=== PATIENT | female | born 1985 ===

== ENCOUNTER 2017-08-27 18:32 | Emergency (ER) | payer OTHER ==
[2017-08-27] MEDS ORDERED: Sodium Chloride 0.9% 1,000 ML IV ONE (18:59)
[2017-08-27] MEDS ORDERED: Iohexol 240 (50 ml) PO ONE (19:01)
--- NOTE | 2017-08-27 19:01 | C.PDOC ---
History Of Present Illness 32 year old female presents to the ED for evaluation of lower abdominal pain which began a few days ago. Patient also reports experiencing some dysuria and hematuria. Patient was recently seen in [facility] and was sent for an abdominal CT. Patient states her LMP was 07/31; she denies being . Patient denies fever, chills. Chief Complaint (Nursing): Abdominal Pain History Per: Patient History/Exam Limitations: no limitations Onset/Duration Of Symptoms: Days Current Symptoms Are (Timing): Still Present Location Of Pain/Discomfort: Other (lower abdomen ) Associated Symptoms: Urinary Symptoms (dysuria, hematuria ). denies: Fever, Chills Additional History Per: Patient Abnormal Vaginal Bleeding: No Last Menstral Period: 07/31/2017 Past Medical History Reviewed: Historical Data, Nursing Documentation, Vital Signs Vital Signs: Last Vital Signs Temp 98.3 F 08/27/17 18:41 Pulse 77 08/27/17 18:41 Resp 16 08/27/17 18:41 BP 117/80 08/27/17 18:41 Pulse Ox 99 08/27/17 19:16 - Medical History PMH: No Chronic Diseases Surgical History: No Surg Hx Family History: States: Unknown Family Hx - Social History Hx Alcohol Use: No Hx Substance Use: No - Immunization History Hx Tetanus Toxoid Vaccination: No Hx Influenza Vaccination: No Hx Pneumococcal Vaccination: No Review Of Systems Constitutional: Negative for: Fever, Chills Gastrointestinal: Positive for: Abdominal Pain (lower ) Genitourinary: Positive for: Dysuria, Hematuria Physical Exam - Physical Exam Appears: Non-toxic, No Acute Distress Skin: Normal Color, Warm, Dry Head: Atraumatic, Normacephalic Eye(s): bilateral: Normal Inspection Oral Mucosa: Moist Neck: Supple Chest: Symmetrical, No Deformity, No Tenderness Cardiovascular: Rhythm Regular, No Murmur Respiratory: Normal Breath Sounds, No Rales, No Rhonchi, No Wheezing Gastrointestinal/Abdominal: Soft, Tenderness (right lower quadrant ), No Guarding, No Rebound Extremity: Normal ROM, Capillary Refill (less than 2 seconds ) Neurological/Psych: Oriented x3, Normal Speech, Normal Cognition ED Course And Treatment - Laboratory Results Result Diagrams: 08/27/17 19:37 08/27/17 19:37 O2 Sat by Pulse Oximetry: 99 (on RA) Pulse Ox Interpretation: Normal Progress Note: Bloodwork, urinalysis, CT A/P ordered and reviewed. IV Fluids given. Disposition Counseled Patient/Family Regarding: Diagnosis - Disposition Referrals: [facility] [Outside] Disposition: HOME/ ROUTINE Disposition Time: 22:12 Condition: STABLE Prescriptions: Nitrofurantoin Macrocrystals [Macrobid] 1 cap PO BID #14 cap Instructions: Urinary Tract Infections in Adults Forms: [facility] (Yoruba), Gen Discharge Inst Panamanian Print Language: PANAMANIAN - POA Present On Arrival: None - Clinical Impression Clinical Impression: UTI (urinary tract infection) - Scribe Statement The provider has reviewed the documentation as recorded by the Scribe (Savana Fernandes) Provider Attestation: All medical record entries made by the Scribe were at my direction and personally dictated by me. I have reviewed the chart and agree that the record accurately reflects my personal performance of the history, physical exam, medical decision making, and the department course for this patient. I have also personally directed, reviewed, and agree with the discharge instructions and disposition.
[2017-08-27 19:40] LABS: BASO # 0.1 K/uL (0.0-0.2); EOS # 0.2 K/uL (0.0-0.7); EOS % 1.8 % (0.0-4.0); HEMOGLOBIN 12.7 g/dL (11.0-16.0); LYMPH % 22.7 % (20.0-40.0); MEAN CELL VOLUME 89.6 fL (81.0-99.0); MEAN CORPUSCULAR HEMOGLOBIN 29.5 pg (27.0-31.0); MEAN CORPUSCULAR HGB CONC 32.9 g/dL (33.0-37.0); MEAN PLATELET VOLUME 8.6 fL (7.2-11.7); MONO # 0.7 K/uL (0.0-0.8); NEUT # 5.9 K/uL (1.8-7.0); NEUT % 66.5 % (50.0-75.0); RBC 4.3 Mil/uL (3.80-5.20); RED CELL DISTRIBUTION WIDTH 14.8 % (11.5-14.5); WHITE BLOOD COUNT 8.9 K/uL (4.8-10.8)
[2017-08-27] MEDS ORDERED: Iohexol 240 (50 ml) ONE (19:44)
[2017-08-27] MEDS ORDERED: Sodium Chloride 0.9% 1,000 ML ONE (19:44)
[2017-08-27 20:05] LABS: INR 1.1
[2017-08-27 20:10] LABS: ALB/GLOB RATIO 1.2 (1.0-2.1); ALBUMIN 4.4 g/dL (3.5-5.0); ALT/SGPT 33 U/L (9-52); AST/SGOT 34 U/L (14-36); BLOOD UREA NITROGEN 10 mg/dL (7-17); CALCIUM 8.9 mg/dl (8.6-10.4); GFR AFRICAN-AMERICAN > 60; GFR NON-AFRICAN AMERICAN > 60; LIPASE 130 U/L (23-300)
[2017-08-27 20:25] LABS: HCG,QUALITATIVE URINE NEGATIVE (NEGATIVE)
[2017-08-27 20:30] LABS: SQUAMOUS EPITHIAL < 1 /hpf (0-5); URINE BILIRUBIN NEGATIVE (NEGATIVE); URINE BLOOD 3+ (NEGATIVE); URINE CLARITY Clear (Clear); URINE COLOR Straw (YELLOW); URINE GLUCOSE (UA) NORMAL (Normal); URINE LEUKOCYTE ESTERASE TRACE Leu/uL (Negative); URINE PROTEIN NEGATIVE (NEGATIVE); URINE UROBILINOGEN NORMAL mg/dL (0.2-1.0)
[2017-08-27] MEDS ORDERED: Iodixanol 320 MG/ML 100 ML BOTTLE IV ONE (20:43)
[2017-08-27 22:27] VITALS: BP 120/84; PULSE 78; RESP 18; TEMP 98; O2SAT 100
--- NOTE | 2017-08-28 07:57 | CT ---
Date of service: 08/27/2017 PROCEDURE: CT Abdomen and Pelvis without intravenous contrast HISTORY: Abdominal pain. Hematuria. COMPARISON: CT dated 06/29/2015 TECHNIQUE: Multiple contiguous axial images were performed through the abdomen and pelvis with the use of intravenous contrast. Subsequently, sagittal and coronal reformatted images were obtained. Radiation dose: Total exam DLP = 577 mGy-cm. This CT exam was performed using one or more of the following dose reduction techniques: Automated exposure control, adjustment of the mA and/or kV according to patient size, and/or use of iterative reconstruction technique. FINDINGS: LOWER THORAX: Unremarkable. LIVER: Tiny low-attenuation foci in the dome of the liver measuring 4 millimeters, possibly representing a cyst. GALLBLADDER AND BILE DUCTS: Unremarkable. PANCREAS: Unremarkable. No gross lesion or ductal dilatation. SPLEEN: Unremarkable. ADRENALS: Unremarkable. No mass. KIDNEYS AND URETERS: Unremarkable. No hydronephrosis. No solid mass. VASCULATURE: Unremarkable. No aortic aneurysm. BOWEL: Scattered areas of underdistention and or mild thickening of the colon most prominently noted at the level of the mid to distal descending colon as well as the proximal to mid transverse colons. Clinical correlation. APPENDIX: Unremarkable. Normal appendix. PERITONEUM: Unremarkable. No free fluid. No free air. LYMPH NODES: Unremarkable. No enlarged lymph nodes. BLADDER: Urinary bladder wall is mildly prominent in thickness which may be secondary to a decompressed state or cystitis. Clinical correlation. REPRODUCTIVE: Unremarkable. BONES: Degenerative changes. OTHER FINDINGS: None. IMPRESSION: Urinary bladder wall is mildly prominent in thickness which may be secondary to a decompressed state and or cystitis. Clinical correlation. Scattered areas of underdistention and or mild thickening of the colon most prominently noted at the level of the mid to distal descending colon as well as the proximal to mid transverse colon. Clinical correlation. These findings were preliminarily reported at 9:30 p.m. on 08/27/[address] Juan Daniel Jensen from [facility].
== END 2017-08-27 22:25 | disposition home or self-care (01) ==
LOC: C.ER 18:32
DX: N39.0 Urinary tract infection, site not specified (principal)
CPT/HCPCS: 74177; 80053; 81001; 83690; 84702; 84703; 85025; 85610; 85730; 87086; 87181; 99284; J7030; Q9966; Q9967

== ENCOUNTER 2018-05-28 18:23 | Outpatient (CLI) | payer OTHER | END 2018-05-28 18:24 | disposition home or self-care (01) | LOC: C.LAB 18:23 | DX: R10.2 Pelvic and perineal pain (principal) ==

== ENCOUNTER 2018-06-23 05:42 | Emergency (ER) | payer MEDICAID, OTHER ==
[2018-06-23] MEDS ORDERED: Sodium Chloride 0.9% 1,000 ML IV ONE (06:03)
--- NOTE | 2018-06-23 06:06 | C.PDOC ---
History Of Present Illness 33 yr old female p/w epigastric / periumbilical and suprapubic abdominal pain x2d. She notes pain feels like a throbbing, without radiation. She notes she had similiar pain a couple of months ago. She notes 1 vomiting episode y esterday, nbnb as well as feeling mildly nauseous now. She did not take any medications for the pain. No constipation or diarrhea. No dark or bloody stool. No fall or trauma. No CP or sob. She denies any back pain or neck stiffness. She notes dysuria but no vaginal bleeding or abnormal vaginal discharge. OBGYN / PMD; [place] Time Seen by Provider: 06/23/18 05:53 Chief Complaint (Nursing): Abdominal Pain Past Medical History Vital Signs: Last Vital Signs Temp 97.9 F 06/23/18 05:46 Pulse 79 06/23/18 05:46 Resp 20 06/23/18 05:46 BP 108/76 06/23/18 05:46 Pulse Ox 98 06/23/18 05:46 Primary Care Provider: Non [facility] Provider, Family History: States: Unknown Family Hx - Social History Hx Alcohol Use: No Hx Substance Use: No - Immunization History Hx Tetanus Toxoid Vaccination: No Hx Influenza Vaccination: No Hx Pneumococcal Vaccination: No Review Of Systems Constitutional: Negative for: Fever, Chills, Sweats, Weakness, Malaise Eyes: Negative for: Pain, Vision Change ENT: Negative for: Ear Pain, Nose Pain, Mouth Pain, Throat Pain, Throat Swelling Cardiovascular: Negative for: Chest Pain, Edema Respiratory: Negative for: Cough, Shortness of Breath, Pleuritic Pain, Wheezing Gastrointestinal: Positive for: Nausea, Abdominal Pain. Negative for: Vomiting, Diarrhea, Constipation, Melena, Hematochezia, Hematemesis, Rectal Pain Genitourinary: Positive for: Dysuria. Negative for: Frequency, Incontinence, Hematuria, Vaginal Discharge, Vaginal Bleeding, Pelvic Pain, Rash Musculoskeletal: Negative for: Neck Pain, Shoulder Pain, Arm Pain, Back Pain, Hand Pain, Leg Pain Skin: Negative for: Rash, Lesions, Jaundice Neurological: Negative for: Weakness, Numbness, Headache Psych: Negative for: Anxiety, Depression, Psychosis, Suicidal ideation Physical Exam - Physical Exam Appears: Well, No Acute Distress Skin: Normal Color, Warm, Dry Head: Atraumatic, Normacephalic Eye(s): bilateral: Normal Inspection, PERRL, EOMI Nose: Normal Tongue: Normal Appearing Lips: Normal Appearing Throat: Normal, No Erythema, No Exudate, No Drooling, No Mass Neck: Normal, Normal ROM, Supple, Other (no meningeal signs) Lymphatic: Normal Exam, No Adenopathy Cardiovascular: Rhythm Regular, No Edema, No Murmur, No JVD Respiratory: Normal Breath Sounds, No Rales, No Rhonchi, No Stridor, No Wheezing, No Plerual Rub Gastrointestinal/Abdominal: Soft, Tenderness (epigastrics, umbilical and suprapubic), No Mass, No Distention, No Guarding, No Rebound Back: Normal Inspection, No CVA Tenderness, No Vertebral Tenderness Extremity: Normal ROM Neurological/Psych: Oriented x3, Normal Speech, Normal Cognition Gait: Steady ED Course And Treatment - Laboratory Results Result Diagrams: 06/23/18 06:26 O2 Sat by Pulse Oximetry: 98 Medical Decision Making Medical Decision Makin yr old female p/w epigastric / periumbilical and suprapubic abdominal pain x2d. Mildly TTP to epigastric / suprapubic / umbilical area. Mostly epigastric and suprapubic pain. No vaginal d/c or bleeding or rash. No constipation or diarrhea or dark or bloody stool. Given time course of pain likely gastritis vs abdominal pain vs uti. No CVAT on exam. Pending imaging, labs 0641 +UTI, no CVAT 0700 signed out to oncoming physician pending remaining labs, imaging, reassessment Disposition - Disposition Disposition Time: 07:00 Condition: STABLE Forms: [facility] (Spanish) - Clinical Impression Clinical Impression: Abdominal pain, UTI (urinary tract infection)
[2018-06-23 06:28] LABS: BASO # 0.1 K/uL (0.0-0.2); BASO % 1.1 % (0.0-2.0); EOS # 0.2 K/uL (0.0-0.7); EOS % 3.1 % (0.0-4.0); HEMOGLOBIN 12.3 g/dL (11.0-16.0); LYMPH # 2.1 K/uL (1.0-4.3); LYMPH % 28.6 % (20.0-40.0); MEAN CELL VOLUME 89.1 fL (81.0-99.0); MEAN CORPUSCULAR HEMOGLOBIN 29.9 pg (27.0-31.0); MEAN CORPUSCULAR HGB CONC 33.5 g/dL (33.0-37.0); MEAN PLATELET VOLUME 9.1 fL (7.2-11.7); MONO # 0.6 K/uL (0.0-0.8); NEUT # 4.2 K/uL (1.8-7.0); NEUT % 58.2 % (50.0-75.0); NRBC % 0.1 % (0.0-2.0); RBC 4.11 Mil/uL (3.80-5.20); RED CELL DISTRIBUTION WIDTH 16.7 % (11.5-14.5); WHITE BLOOD COUNT 7.2 K/uL (4.8-10.8)
[2018-06-23] MEDS ORDERED: Sodium Chloride 0.9% 1,000 ML ONE (06:28)
[2018-06-23 06:35] LABS: SQUAMOUS EPITHIAL 22 /hpf (0-5); URINE AMORPHOUS SEDIMENT RARE /ul (<OCC); URINE BACTERIA RARE (<OCC); URINE BILIRUBIN NEGATIVE (NEGATIVE); URINE BLOOD NEGATIVE (NEGATIVE); URINE CLARITY Hazy (Clear); URINE COLOR Yellow (YELLOW); URINE GLUCOSE (UA) NORMAL (Normal); URINE LEUKOCYTE ESTERASE 3+ Leu/uL (Negative); URINE PROTEIN NEGATIVE (NEGATIVE); URINE UROBILINOGEN NORMAL mg/dL (0.2-1.0)
[2018-06-23 07:00] VITALS: O2SAT 100
[2018-06-23 07:03] LABS: ALB/GLOB RATIO 1.2 (1.0-2.1); ALBUMIN 4.1 g/dL (3.5-5.0); ALT/SGPT 20 U/L (9-52); AST/SGOT 38 U/L (14-36); BLOOD UREA NITROGEN 7 mg/dL (7-17); GFR NON-AFRICAN AMERICAN > 60; LIPASE 143 U/L (23-300)
--- NOTE | 2018-06-23 08:42 | US ---
Pelvic ultrasound HISTORY: . Pain. COMPARISON: None available. TECHNIQUE: Real-time sonography was performed through the pelvis utilizing transabdominal technique. FINDINGS: Uterus: 15.1 x 8.9 x 9.9 centimeters. Heterogeneous echotexture. Anteverted. Cervix measures 4.1 centimeters. Intrauterine gestational sac noted. Graton-rump length measures 4.3 centimeters corresponding to a gestational age of 11 weeks and 1 day. heart rate of 163 beats per minute. No free fluid in the pelvic cul-de-sac. Right ovary: 3.8 x 2.5 x 3.3 centimeters. Normal flow. Left ovary: 3.1 x 2.4 x 3.5 centimeters. Normal flow. Impression: Intrauterine corresponding to a gestational age of 11 weeks and 1 day by crown-rump length of 4.3 centimeters. heart rate of 163 beats per minute. Limited 1st trimester ultrasound for viability purposes only. Continued interval followup with serial ultrasound, serial HCG levels, and gynecological consultation would be helpful if clinically indicated.
[2018-06-23 09:03] VITALS: BP 96/57; PULSE 59; RESP 18; TEMP 97.7
== END 2018-06-23 09:18 | disposition home or self-care (01) ==
LOC: C.ER 05:42
DX: O23.41 Unspecified infection of urinary tract in pregnancy, first trimester (principal); O26.891 Other specified pregnancy related conditions, first trimester; R10.33 Periumbilical pain; Z3A.11 11 weeks gestation of pregnancy
CPT/HCPCS: 76801; 80053; 81001; 83690; 84702; 85025; 86850; 86900; 87086; 96374; 99285; J2765; J7030

== ENCOUNTER 2018-07-08 21:25 | Emergency (ER) | payer MEDICAID ==
--- NOTE | 2018-07-08 23:04 | C.PDOC ---
History Of Present Illness 33 year old F at 13 weeks presents epigastric abdominal pain without radiation. She notes she mis-spoke to triage about abdominal pain radiating to back. She notes pain feels like a throbbing, started yesterday, without radiation, similiar to previous visit here. No RLQ abdominal pain or flank pain. No fall or trauma. She denies any taking any medications for the pain. She notes she was seen by her OBGYN at [facility] today for the same issue and was d/c home. She notes that she vomited once when she got home, non bloody and non dark. No rash. Denies any vaginal bleeding or d/c RN nauruan speaker translating Time Seen by Provider: 07/08/18 23:02 Chief Complaint (Nursing): Abdominal Pain Past Medical History Vital Signs: Last Vital Signs Temp 98.3 F 07/08/18 21:27 Pulse 84 07/08/18 21:27 Resp 20 07/08/18 21:27 BP 105/71 07/08/18 21:27 Pulse Ox 98 07/08/18 21:27 Primary Care Provider: Non [facility] Provider, Family History: States: Unknown Family Hx - Social History Hx Alcohol Use: No Hx Substance Use: No - Immunization History Hx Tetanus Toxoid Vaccination: No Hx Influenza Vaccination: No Hx Pneumococcal Vaccination: No Review Of Systems Constitutional: Negative for: Fever, Chills, Sweats, Weakness, Malaise Eyes: Negative for: Pain, Vision Change ENT: Negative for: Ear Pain, Ear Discharge, Nose Pain, Nose Discharge, Nose Congestion, Mouth Pain, Mouth Swelling, Throat Pain Cardiovascular: Negative for: Chest Pain, Palpitations, Orthopnea Respiratory: Negative for: Cough, Shortness of Breath, Hemoptysis, SOB with Excertion, Pleuritic Pain, Sputum Gastrointestinal: Positive for: Nausea, Vomiting, Abdominal Pain. Negative for: Diarrhea, Constipation, Melena, Hematochezia, Hematemesis Genitourinary: Negative for: Dysuria, Frequency, Incontinence, Hematuria, Vaginal Discharge, Vaginal Bleeding, Pelvic Pain, Rash, Other Musculoskeletal: Negative for: Neck Pain, Shoulder Pain, Arm Pain, Back Pain, Hand Pain Skin: Negative for: Rash, Lesions, Jaundice Neurological: Negative for: Weakness, Numbness, Change in Speech, Confusion, Altered Mental Status, Headache Physical Exam - Physical Exam Appears: Well, Non-toxic, No Acute Distress, Other (resting comfortably) Skin: Normal Color, Warm, Dry Head: Atraumatic, Normacephalic Eye(s): bilateral: Normal Inspection, PERRL, EOMI Ear(s): Bilateral: Normal Nose: Normal Oral Mucosa: Moist Tongue: Normal Appearing Lips: Normal Appearing Throat: Normal, No Erythema, No Exudate Neck: Normal Cardiovascular: Rhythm Regular Respiratory: Normal Breath Sounds Gastrointestinal/Abdominal: Soft, Tenderness (epigastric), No Organomegaly, No Mass, No Distention, No Guarding, No Rebound, No Hernia, No Ascites, Other (no RLQ or R sided flank pain No LLQ pain) Back: Normal Inspection, No CVA Tenderness, No Vertebral Tenderness, No Decreased ROM, No Muscle Spasm, No Paraspinal Tenderness Extremity: Normal ROM, No Tenderness, No Pedal Edema Extremity: Bilateral: Atraumatic Neurological/Psych: Oriented x3, Normal Speech, Normal Cognition, Normal Motor Gait: Steady ED Course And Treatment - Laboratory Results Result Diagrams: 07/08/18 23:42 07/08/18 23:42 O2 Sat by Pulse Oximetry: 98 Medical Decision Making Medical Decision Makin33 year old F at 13 weeks presents epigastric abdominal pain without radiation. No RLQ abdominal pain. No CVAT. No Flank pain. No fever, chills or night sweats. Negative psoas signs. Negative obturator signs. epigastric pain on exam. like gerd / gastritis vs pregnany associated pain. no vaginal d/c or bleeding pending imaging, labs 1200 uti on labs w/ out CVAT 0051 labs otherwise unremarkable pending US results signed out to oncoming attending pending final dispo pt in NAD Disposition - Disposition Referrals: [facility] [Outside] [facility] [Outside] [facility] [Outside] [facility] [Outside] Evelyn Batres MD [Staff Provider] - Disposition Time: 00:52 Condition: STABLE Additional Instructions: PARAG MAX, thank you for letting us take care of you today. Your provider was Bear Christie and you were treated for 13 WKS PREG/VOMITING. The emergency medical care you received today was directed at your acute symptoms. If you were prescribed any medication, please fill it and take as directed. It may take several days for your symptoms to resolve. Return to the Emergency Department if your symptoms worsen, do not improve, or if you have any other problems. Please contact your doctor or call one of the physicians/clinics you have been referred to that are listed on the Patient Visit Information form that is included in your discharge packet. Bring any paperwork you were given at discharge with you along with any medications you are taking to your follow up visit. Our treatment cannot replace ongoing medical care by a primary care provider outside of the emergency department. Thank you for allowing the [facility] team to be part of your care today. If you had an X-Ray or CT scan: A Radiologist will review the ED reading if any change in treatment is needed we will contact you. If you had a blood, urine, or wound culture: It will take several days for the results, if any change in treatment is needed we will contact you. If you had an STI test: It will take 48 hours for the results. Please call after 1 week if you have not heard back. Prescriptions: Nitrofurantoin Macrocrystal [Macrodantin] 100 mg PO BID 5 Days #10 capsule Forms: [facility] (Nepali) - Clinical Impression Clinical Impression: UTI (urinary tract infection)
[2018-07-08] MEDS ORDERED: Sodium Chloride 0.9% 1,000 ML IV ONE (23:13)
[2018-07-08] MEDS ORDERED: Sodium Chloride 0.9% 1,000 ML ONE (23:37)
[2018-07-08 23:50] LABS: BASO % 0.4 % (0.0-2.0); EOS % 0.2 % (0.0-4.0); HEMOGLOBIN 12.2 g/dL (11.0-16.0); LYMPH # 0.8 K/uL (1.0-4.3); LYMPH % 14.1 % (20.0-40.0); MEAN CELL VOLUME 87.2 fL (81.0-99.0); MEAN CORPUSCULAR HEMOGLOBIN 30.2 pg (27.0-31.0); MEAN CORPUSCULAR HGB CONC 34.6 g/dL (33.0-37.0); MONO # 0.3 K/uL (0.0-0.8); MONO % 5.4 % (0.0-10.0); NEUT # 4.5 K/uL (1.8-7.0); NEUT % 79.9 % (50.0-75.0); RBC 4.04 Mil/uL (3.80-5.20); RED CELL DISTRIBUTION WIDTH 16.8 % (11.5-14.5); WHITE BLOOD COUNT 5.6 K/uL (4.8-10.8)
[2018-07-08 23:54] LABS: SQUAMOUS EPITHIAL 19 /hpf (0-5); URINE BACTERIA RARE (<OCC); URINE BILIRUBIN NEGATIVE (NEGATIVE); URINE BLOOD 1+ (NEGATIVE); URINE CLARITY Hazy (Clear); URINE COLOR Yellow (YELLOW); URINE GLUCOSE (UA) NORMAL (Normal); URINE LEUKOCYTE ESTERASE 3+ Leu/uL (Negative); URINE PROTEIN NEGATIVE (NEGATIVE); URINE UROBILINOGEN NORMAL mg/dL (0.2-1.0)
[2018-07-09 00:03] LABS: ALB/GLOB RATIO 1.2 (1.0-2.1); ALBUMIN 3.5 g/dL (3.5-5.0); ALT/SGPT 57 U/L (9-52); AST/SGOT 72 U/L (14-36); BLOOD UREA NITROGEN 5 mg/dL (7-17); CALCIUM 8.9 mg/dl (8.6-10.4); GFR NON-AFRICAN AMERICAN > 60; LIPASE 104 U/L (23-300)
[2018-07-09] MEDS ORDERED: Potassium Chloride 20 mEq ER Tab PO STA (00:05)
[2018-07-09] MEDS ORDERED: Potassium Chloride 20 mEq ER Tab PO ONE (00:54)
[2018-07-09 01:21] VITALS: RESP 18; O2SAT 99
[2018-07-09 02:26] VITALS: BP 134/76; PULSE 77; TEMP 98.9
--- NOTE | 2018-07-09 16:50 | US ---
Date of service: 07/09/2018 PROCEDURE: Obstetrical ultrasound examination HISTORY: epig abd pain COMPARISON: 06/23/2018 TECHNIQUE: Transabdominal FINDINGS: There is a single live intrauterine gestation in cephalic presentation. The heart rate is 159 beats per minute. A posterior placenta is identified. There is no evidence of placenta previa. A normal quantity of amniotic fluid is visualized. The cervix measures 4.6 cm in length and is closed. The uterus is significant for a posterior uterine body fibroid measuring 1.2 x 1.4 x 1.6 cm. biometry yields a gestational age of 14 weeks 1 day. The CHRISSY by ultrasound is 01/06/2019. Limited review of anatomy demonstrates fluid distending the stomach and urinary bladder. A three-vessel umbilical cord is identified. The anterior abdominal wall is intact. Two normal kidneys are evident without evidence of hydronephrosis. IMPRESSION: Single live intrauterine gestation of approximately 14 weeks 1 day gestational age. No gross anatomic abnormality. Limited anatomic evaluation in this early 2nd trimester . Cephalic presentation. heart rate 159 beats per minute. Posterior placenta. No previa. Cervix long and closed. The preliminary findings for this examination were reported by [facility] at 1:47 a.m. on 07/09/2018. There is concurrence of this report with the preliminary findings.
== END 2018-07-09 02:26 | disposition home or self-care (01) ==
LOC: C.ER 21:25
DX: O23.42 Unspecified infection of urinary tract in pregnancy, second trimester (principal); O34.12 Maternal care for benign tumor of corpus uteri, second trimester; D25.9 Leiomyoma of uterus, unspecified; Z3A.14 14 weeks gestation of pregnancy
CPT/HCPCS: 76815; 80053; 81001; 83690; 84702; 85025; 86850; 86900; 87086; 96374; 99285; J2765; J7030